=== PATIENT | male | born 1985 | race Caucasian/White ===

== ENCOUNTER 2024-11-29 16:29 | Inpatient (IN) | payer SELFPAY ==
[~2024-11-29 16:29] MED LIST: Iopamidol 370 76% 100 ML VIAL ONE
[2024-11-29] MEDS ORDERED: Labetalol HCl 100 MG/20 ML VIAL ONE (16:33)
[2024-11-29] MEDS ORDERED: Heparin 10,000 UNITS/ 10 ML VIAL ONE (16:47)
[2024-11-29] MEDS ORDERED: TICAGRELOR 90 MG TABLET ONE (16:59)
[2024-11-29] MEDS ORDERED: Morphine 2 MG/ML VIAL SLOW IVP PRN (17:16)
[2024-11-29] MEDS ORDERED: Nitroglycerin 0.4 MG TAB (25 Tab Bottle) SL PRN (17:16)
[2024-11-29 18:05] VITALS: BMI 27.3
[2024-11-29 19:15] LABS: Troponin I 3.316 ng/mL (< 0.028)
[2024-11-29] MEDS: Carvedilol 3.125 MG TAB PO SCH (20:11)
[2024-11-29] MEDS: Lisinopril 10 MG TAB PO SCH (20:12)
[2024-11-29] MEDS: TICAGRELOR 90 MG TABLET PO SCH (20:14)
[2024-11-29] MEDS: Atorvastatin Calcium 40 MG TAB PO SCH (20:14)
[2024-11-29] MEDS: Sodium Chloride 0.9% 1,000 ML IV SCH (20:15)
[2024-11-29] MEDS: Nitroglycerin 50 MG/250 ML BOT 250 ML IVPB SCH (21:16)
[2024-11-30] MEDS ORDERED: Ondansetron PF 4 MG/2 ML Vial IVP PRN (00:46)
[2024-11-30] MEDS ORDERED: Acetaminophen 650 MG Suppository PR PRN (00:46)
[2024-11-30] MEDS ORDERED: Calcium Carbonate 500 MG ChewTAB PO PRN (00:46)
[2024-11-30] MEDS ORDERED: Ondansetron ODT 4 MG TAB PO PRN (00:46)
[2024-11-30 01:06] LABS: Troponin I 12.408 ng/mL (< 0.028)
[2024-11-30 04:06] LABS: #Basophils 0.04 10x3/uL (0.0-0.2); %Basophils 0.3 % (0.0-1.0); %Eosinophils 1.4 % (0.0-10.0); %Monocytes 8.3 % (0.0-10.0); %Neutrophils 62.7 % (42.0-75.0); Hematocrit 42.5 % (42.0-52.0); Hemoglobin 14.8 g/dL (14.0-18.0); Mean Corpuscular HGB CONC 34.8 g/dL (32.0-36.0); Mean Corpuscular Hemoglobin 31.2 pg (27.0-31.0); Mean Corpuscular Volume 89.5 fL (78.0-98.0); Mean Platelet Volume 9.7 fL (7.4-10.4); Platelet Count 216 10x3/uL (130-400); RBC Distribution Width 12.5 % (11.5-14.5); Red Blood Cell (RBC) Count 4.75 mill/uL (4.70-6.10)
[2024-11-30 04:30] LABS: BUN (Urea Nitrogen) 11 mg/dL (8.9-20.6); Calc. Creatinine Clearance 211 mL/min (70-130); Calcium 8.7 mg/dL (7.8-10.44); Carbon Dioxide 23 mmol/L (22-29); Estimated GFR 123; Glucose 97 mg/dL (70-105); Magnesium 1.9 mg/dL (1.6-2.6)
[2024-11-30 04:44] LABS: Anion Gap 12 mmol/L (10-20); Chloride 110 mmol/L (98-107); Sodium 140 mmol/L (136-145)
[2024-11-30] MEDS: Magnesium 2 GM/50 ML(in water) 2 GM in Premix 1 BAG IVPB SCH (05:31)
[2024-11-30] MEDS: Acetaminophen 325 MG TAB PO PRN (07:46)
[2024-11-30] MEDS: Lisinopril 10 MG TAB PO SCH (07:48)
[2024-11-30] MEDS: Famotidine/PF 20 mg/2ml Vial SLOW IVP SCH (07:48)
[2024-11-30] MEDS: Aspirin Chewable 81 MG TAB PO SCH (07:48)
[2024-11-30] MEDS: Carvedilol 3.125 MG TAB PO SCH (07:48)
[2024-11-30] MEDS: Famotidine 20 MG TAB PO SCH (07:48)
[2024-11-30 08:48] LABS: ALT (SGPT) 29 U/L (Less than 45); AST (SGOT) 84 U/L (11-34); Albumin 3.4 g/dL (3.1-4.5); Alkaline Phosphatase 42 U/L (40-110); Anion Gap 10 mmol/L (10-20); BUN (Urea Nitrogen) 11 mg/dL (8.9-20.6); Bilirubin, Total 0.6 mg/dL (0.3-1.2); Calc. Creatinine Clearance 212 mL/min (70-130); Calcium 8.6 mg/dL (7.8-10.44); Carbon Dioxide 22 mmol/L (22-29); Chloride 112 mmol/L (98-107); Estimated GFR 123; Globulin 2.9 g/dL (2.4-3.5); Glucose 93 mg/dL (70-105); Protein, Total 6.3 g/dL (6.0-8.3); Sodium 140 mmol/L (136-145)
[2024-12-01 04:43] LABS: #Basophils 0.05 10x3/uL (0.0-0.2); %Basophils 0.5 % (0.0-1.0); %Eosinophils 1.3 % (0.0-10.0); %Lymphocytes 30.3 % (21.0-51.0); %Monocytes 9.4 % (0.0-10.0); %Neutrophils 58.1 % (42.0-75.0); Hematocrit 40.4 % (42.0-52.0); Hemoglobin 13.9 g/dL (14.0-18.0); Mean Corpuscular HGB CONC 34.4 g/dL (32.0-36.0); Mean Corpuscular Hemoglobin 31.5 pg (27.0-31.0); Mean Corpuscular Volume 91.6 fL (78.0-98.0); Mean Platelet Volume 10.3 fL (7.4-10.4); Platelet Count 213 10x3/uL (130-400); RBC Distribution Width 12.6 % (11.5-14.5); Red Blood Cell (RBC) Count 4.41 mill/uL (4.70-6.10)
[2024-12-01 05:21] LABS: Anion Gap 13 mmol/L (10-20); BUN (Urea Nitrogen) 14 mg/dL (8.9-20.6); Calc. Creatinine Clearance 166 mL/min (70-130); Calcium 8.8 mg/dL (7.8-10.44); Carbon Dioxide 23 mmol/L (22-29); Cardiac Risk 5.5 (Less than 4.5); Chloride 109 mmol/L (98-107); Cholesterol 205 mg/dl (< 200 Desired); Estimated GFR 114; Glucose 88 mg/dL (70-105); HDL Cholesterol 37 mg/dL (>60 Neg Risk); LDL Cholesterol, Calculated 129 mg/dL; Potassium 3.8 mmol/L (3.5-5.1); Sodium 141 mmol/L (136-145); Triglycerides 195 mg/dL (Less than 150)
[2024-12-01 11:51] VITALS: BP 138/95; TEMP 97.8
== END 2024-12-01 16:14 | disposition home or self-care (01) | DRG 322 ==
LOC: SDC 16:29 → CCU 17:52 → 2NO 11-30 09:05
PROVIDERS: ADMIT Student in an Organized Health Care Education/Training Program; ATTEND Student in an Organized Health Care Education/Training Program
PROC: 027035Z Dilation of Coronary Artery, One Artery with Two Drug-eluting Intraluminal Devices, Percutaneous Approach (ICD-10-PCS; principal; 2024-11-29)
PROC: 4A023N7 Measurement of Cardiac Sampling and Pressure, Left Heart, Percutaneous Approach (ICD-10-PCS; 2024-11-29)
PROC: B2111ZZ Fluoroscopy of Multiple Coronary Arteries using Low Osmolar Contrast (ICD-10-PCS; 2024-11-29)
PROC: B240ZZ3 Ultrasonography of Single Coronary Artery, Intravascular (ICD-10-PCS; 2024-11-29)
DX: I21.19 ST elevation (STEMI) myocardial infarction involving other coronary artery of inferior wall (principal); I47.20 Ventricular tachycardia, unspecified; F17.210 Nicotine dependence, cigarettes, uncomplicated; E78.5 Hyperlipidemia, unspecified; I10 Essential (primary) hypertension; Z71.6 Tobacco abuse counseling
CPT/HCPCS: 36415; 80048; 80053; 80061; 83735; 85025; 85347; 92941; 93458; 93798; 99152; 99153; C1753; C1769; C1874; C1894; C9606; J1644; J3475; J7030; Q9967